=== PATIENT | male | born 1970 | race Caucasian/White ===

== ENCOUNTER 2021-04-01 16:54 | Emergency (ER) | payer OTHER ==
[2021-04-01 17:44] LABS: RED BLOOD COUNT 5.57 M/UL (4.20-5.50); WHITE BLOOD COUNT 9.9 K/UL (4.5-11.0)
[2021-04-01 18:03] LABS: BUN/CREATININE RATIO 20 (0-10)
[2021-04-01] MEDS ORDERED: ANTIVERT 12.512.5 MG PO (19:42)
[2021-04-01] MEDS ORDERED: AMOXICILLIN500 MG PO (19:42)
[2021-04-01] MEDS ORDERED: ZOFRAN4 MG PO (19:42)
== END 2021-04-01 20:37 | disposition home or self-care (01) ==
LOC: ER1 16:54
PROVIDERS: Physician Assistant
DX: H66.91 Otitis media, unspecified, right ear (principal)
CPT/HCPCS: 70486; 80053; 85025; 86140; 93005; 96365; 96375; 99284; J0696; J1885; J2405; J7030